=== PATIENT | female | born 1940 | race Caucasian/White ===

== ENCOUNTER → 2018-06-04 | Day surgery (SDC) | payer MEDICARE, OTHER ==
[~2018-06-04] MED LIST: GLYCOPYRROLATE 0.2 MG/ML 1ML VIAL ONE; HEPARIN 1,000 UNITS/ml 1ML VIAL ONE; HYDROmorphone HCL 2 MG/ML VL ONE; LIDOCAINE 2% (LOCAL ANESTH.) PF 5ml SDV ONE; LIDOCAINE 2% JELLY 11ml (GLYDO) ONE; LIDOCAINE HCL 2% TOP JELLY 5ML TOP ONE; SODIUM CHLORIDE LOCK 30 ML ONE
[2018-06-04 11:57] LABS: Basophils # (auto) 0.1 uL; Basophils % (auto) 0.5 % (0.0-2.0); Eosinophils # (auto) 0 uL; Eosinophils % (auto) 0.4 % (0.0-7.0); Hemoglobin 11.9 g/dL (12.2-16.2); Lymphocytes # (auto) 1.6 uL; Lymphocytes % (auto) 13.5 % (10.0-50.0); Mean Corpuscular Hemoglobin 31.4 pg (28.0-32.0); Mean Corpuscular Hgb Conc. 33.2 g/dL (32.0-36.0); Mean Corpuscular Volume 94.5 fL (80.0-100.0); Monocytes % (auto) 8.5 % (0.0-12.0); Neutrophils # (auto) 8.9 uL; Neutrophils % (auto) 77.1 % (37.0-80.0); Nucleated Red Blood Cells % 0.1 %; Platelet Count (auto) 334 10^3/uL (140-450); Red Blood Cells 3.81 10^6/uL (4.0-5.20); Red Cell Distribution Width 15.1 % (11.8-14.3); White Blood Cell 11.5 10^3/uL (4.4-10.8)
[2018-06-04 12:15] LABS: BUN/Creatinine Ratio 23.8; Calcium 9.2 mg/dL (8.5-10.1); Potassium 4.1 mmol/L (3.5-5.1)
[2018-06-04 12:17] LABS: INR 0.98 (0.9-1.15); Prothrombin Time 10.5 sec (9.27-12.13)
[2018-06-04] MEDS: fentaNYL CITRATE 100 MCG/2 ML VL ONE ×2 (13:05→13:09)
[2018-06-04] MEDS: MIDAZOLAM HCL 1MG/1ML-2 ML VIAL ONE ×3 (13:05→13:12)
[2018-06-04 15:48] VITALS: BP 113/66
== END | disposition home or self-care (01) ==
LOC: SUR 11:01
PROVIDERS: ATTEND Internal Medicine Pulmonary Disease
DX: R91.8 Other nonspecific abnormal finding of lung field (principal); J98.4 Other disorders of lung; D64.9 Anemia, unspecified; M06.9 Rheumatoid arthritis, unspecified; M19.90 Unspecified osteoarthritis, unspecified site; I50.9 Heart failure, unspecified; C43.9 Malignant melanoma of skin, unspecified; L50.9 Urticaria, unspecified; R06.02 Shortness of breath; R07.9 Chest pain, unspecified; I00 Rheumatic fever without heart involvement; Z87.891 Personal history of nicotine dependence; Z88.8 Allergy status to other drugs, medicaments and biological substances; Z79.899 Other long term (current) drug therapy; Z90.710 Acquired absence of both cervix and uterus; Z90.721 Acquired absence of ovaries, unilateral; Z98.890 Other specified postprocedural states
CPT/HCPCS: 31625; 36415; 71045; 80048; 85025; 85610; 85730; 87070; 87077; 87205; 99152; 99153; J2001; J2250